=== PATIENT | female | born 1965 | race American Indian/Alaskan Native ===

== ENCOUNTER 2017-07-16 06:14 | Day surgery (SDC) | payer BC ==
[~2017-07-16 06:14] MED LIST: HEPARIN 10,000 UNITS/10 ML IV ONE; NACL 0.9% 1000 ML 1,000 ML IV SCH; NACL 0.9% IR ONE; NACL 0.9% IV ONE; PEPCID PO NR; VERSED IV NR
--- NOTE | 2017-07-16 07:22 | Anesthesia Consultation ---
Anesthesia Consult and Med Hx Date of service: 07/16/17 - Airway Anesthetic Teeth Evaluation: Good ROM Head & Neck: Adequate Mental/Hyoid Distance: Adequate Mallampati Class: Class III Intubation Access Assessment: Possibly Difficult - Pulmonary Exam CTA: Yes - Cardiac Exam Cardiac Exam: RRR - Pre-Operative Health Status ASA Pre-Surgery Classification: ASA2 Proposed Anesthetic Plan: General - Cardiovascular System Hx Hypertension: Yes (2 years) - Central Nervous System Hx Psychiatric Problems: No - Hematic Hx Anemia: Yes - Other Systems Hx Alcohol Use: Yes (weekends) Hx Cancer: Yes (Left breast)
--- NOTE | 2017-07-16 07:22 | Anesthesia Day of Surgery ---
Anesthesia Day of Surgery - Day of Surgery Patient Examined: Yes Patient H&P Reviewed: Yes Patient is NPO: Yes
[2017-07-16] MEDS ORDERED: DILAUDID IV PRN (07:23)
[2017-07-16] MEDS ORDERED: HEPARIN 10,000 UNITS/10 ML ONE (07:39)
[2017-07-16] MEDS ORDERED: MARCAINE 0.25% INFILTRATI ONE ×3 (07:39→08:45)
[2017-07-16] MEDS ORDERED: XYLOCAINE 1% 20 mL ONE (07:39)
[2017-07-16] MEDS ORDERED: NACL 0.9% 100 ML ONE (07:39)
[2017-07-16] MEDS ORDERED: ANCEF/STERILE WATER 2 GM/20 ML IV NR (08:00)
[2017-07-16] MEDS ORDERED: DIPRIVAN 10 MG/ML IV ONE (08:12)
[2017-07-16] MEDS ORDERED: DILAUDID ONE (08:12)
[2017-07-16] MEDS ORDERED: XYLOCAINE MPF 2% ONE (08:13)
[2017-07-16] MEDS ORDERED: ZOFRAN IV PRN (08:30)
[2017-07-16] MEDS ORDERED: PERCOCET 5/325 PO PRN (08:30)
[2017-07-16] MEDS ORDERED: ZOFRAN ONE (08:40)
[2017-07-16] MEDS ORDERED: XYLOCAINE 1% 20 mL INFILTRATI ONE ×2 (08:45)
[2017-07-16] MEDS ORDERED: HEPARIN 10,000 UNITS/10 ML IV ONE ×2 (08:59→09:20)
[2017-07-16] MEDS ORDERED: NACL 0.9% IV ONE (08:59)
[2017-07-16] MEDS ORDERED: NACL 0.9% IR ONE (09:04)
--- NOTE | 2017-07-16 09:38 | Short Stay Summary ---
Short Stay Documentation Date of service: 07/16/17 - History H&P: obtained from office - Allergies and Medications Current Medications: Allergies No Known Allergies Allergy (Unverified 07/10/17 14:02) Home Medications Medication Instructions Recorded Confirmed Last Taken Type amLODIPine [Norvasc] 5 mg PO DAILY 07/10/17 07/16/17 07/15/17 19:00 History Active Medications Cefazolin Sodium (Ancef/Sterile Water 2 Gm/20 Ml) 2 gm IV PREOP NR Stop: 07/16/17 15:00 Famotidine (Pepcid) 20 mg PO PREOP NR Stop: 07/16/17 23:59 Last Admin: 07/16/17 07:47 Dose: 20 mg Hydromorphone HCl (Dilaudid) 0.5 mg IV Q10MIN PRN PRN Reason: Pain , Severe (7-10) Stop: 07/16/17 15:00 Sodium Chloride (Nacl 0.9% 1000 Ml) 1,000 mls @ 75 mls/hr IV DIRECT ISABEL Last Admin: 07/16/17 07:47 Dose: 75 mls/hr Midazolam HCl (Versed) 2 mg IV PREOP NR Stop: 07/16/17 23:59 Last Admin: 07/16/17 07:47 Dose: 2 mg - Brief post op/procedure progress note Date of procedure: 07/16/17 Pre-op diagnosis: Left breast cancer of the upper outer quadrant Post-op diagnosis: same Procedure: Left port placement under fluoroscopy guidance Anesthesia: GETA Findings: left port placement confirmed under fluoroscopy guidance Surgeon: CHYNA RICHARDSON Purchasing/Receiving: JACK LANG Estimated blood loss: minimal Pathology: none Condition: stable - Disposition Condition at discharge: Good Disposition: DC-01 TO HOME OR SELFCARE Short Stay Discharge Plan Activity: other (no heavy lifting) Diet: regular Wound: other (keep incision clean and dry; may shower in 24 hours; no baths, pools or lakes; do not rub or scrub incision) Follow up with: DONOVAN DENTON JR, MD [Primary Care Provider] - 7 Days CHYNA RICHARDSON MD [Staff Physician] - 7 Days
--- NOTE | 2017-07-16 09:39 | Fluoroscopy Report ---
AP CHEST: HISTORY: Port insertion AP view of the chest demonstrates a normal mediastinal and cardiac contour with clear lungs and normal bony and soft tissue structures. A right [id number] has been inserted which terminates near the cavoatrial junction. No pneumothorax is demonstrated. IMPRESSION: Unremarkable AP chest.
--- NOTE | 2017-07-16 09:43 | Operative Report ---
Operative Report Operative Report: Date of Service: July 16, 2017 Preoperative diagnosis: Left breast cancer of the upper outer quadrant in need of central venous access Postoperative diagnosis: Same Procedure: Right port placement under fluoroscopy guidance Surgeon: Tatum Akbar M.D. Asst.: Dr. Johnson Anesthesia: Local Mac Findings: Right port placement in good position with placement confirmed under fluoroscopy guidance Complications: None Estimated blood loss: Minimal Disposition: PACU in good condition Indications for operative procedure: This is a 70-year-old lady with left breast cancer of the upper outer quadrant. Recommendations are to proceed with neoadjuvant chemotherapy. Patient in need of central venous access to start chemotherapy. Procedure in detail: The patient was taken to the operating room and was laid supine. Local Mac anesthesia was administered. Bilateral neck and chest were prepped and draped in the normal sterile operative fashion. Timeout was performed. Sternal notch including right pectoral groove was identified. The area for central venous access was anesthetized with 1% lidocaine. The right sublcavian vein was accessed with the syringe and needle attached and good backflow of blood was noted. Wire was introduced through the needle. Placement of wire was confirmed under fluoroscopy guidance. A skin incision was then made at wire insertion site with a 15 blade knife after the skin was appropriately anesthetized. Bovie cautery was used to create the pocket for port placement. Dilator and sheath were then threaded through the wire in Seldinger technique. The wire and dilator were then removed. The catheter was then inserted through the sheath without incident. The catheter was tested with good backflow of blood and placement confirmed under flouroscopy. The sheath was then peeled back. The catheter was cut to size. The catheter was then attached to the port. The port was placed in the appropriate pocket that was created. The port was tested with good backflow of blood noted. Fluoroscopy was performed with port in good placement and no concerns for a pneumothorax. The port was sutured into place. The port was flushed with heparin. The skin incision was then approximated and closed using interrupted 3-0 Vicryl and then closed using a running 4-0 Monocryl and skin affix. Upright chest x-ray performed in operating room with port in good placement and no signs of pneumothorax. She tolerated surgery very well and was awakened from anesthesia and transported to PACU in good condition.
[2017-07-16] MEDS ORDERED: NORCO 5/325 PO PRN (10:30)
[2017-07-16 18:40] VITALS: BP 137/85
--- NOTE | 2017-07-16 18:41 | Post Anesthesia Evaluation ---
- Post Anesthesia Evaluation Patient Participated: Yes Airway Patent: Yes Stable Respiratory Function: Yes Nausea/Vomiting: No Temp > 96.8F: Yes Pain Manageable: Yes Adequeate Hydration: Yes Anesthesia Complications: No Block Receding Appropriately: Not Applicable Patient on Ventilator: No
== END 2017-07-16 11:17 | disposition home or self-care (01) ==
LOC: OR 06:14
PROVIDERS: ATTEND Surgery
DX: C50.412 Malignant neoplasm of upper-outer quadrant of left female breast (principal); D64.9 Anemia, unspecified; I10 Essential (primary) hypertension; Z72.89 Other problems related to lifestyle
CPT/HCPCS: 36561; 77001; 81025; C1788; J0690; J1170; J1644; J2250; J2405; J2704; J7030

== ENCOUNTER 2017-07-17 07:28 | Outpatient (CLI) | payer BC ==
--- NOTE | 2017-07-17 12:51 | PET Report ---
PET/CT:07/17/17 07:28:00 CLINICAL: Left breast cancer initial staging. RADIOPHARMACEUTICAL: 13.55mCi F18-FDG. COMPARISON: 07/04/17 left mammogram TECHNIQUE- Following intravenous injection of F-18 FDG and an approximately 60 minute uptake period, CT and PET images from the mid skull to the upper thighs were acquired with the patient in the fasted state. No contrast was administered. The CT protocol used for this PET CT study is designed for attenuation correction and anatomic localization of PET abnormalities. This build and deployment engineer CT is not desired to produce and cannot replace, mtwnh-th-siv-art diagnostic CT scans with specific imaging protocols for different body parts and indications. Plasma glucose at the time of this test: 103g/dl. The standardized uptake values (SUV) are normalized to patient body weight and indicate the highest activity concentration (SUV max) in a given disease site. FINDINGS: Brain--Physiologic FDG uptake in the visualized regions of the brain. Neck--Physiologic FDG uptake . Shotty non-FDG avid lymph nodes throughout the neck. Chest--An FDG avid left upper outer breast mass corresponds to the newly diagnosed cancer and measures 3.8 x 2.4 cm with SUV 10.6. Physiologic FDG uptake in mediastinal blood pool and myocardium. The left breast is enlarged with moderate skin thickening but no FDG uptake in the skin and no other breast mass. Lungs--No abnormal uptake. No pulmonary nodule or mass. Pleura/pericardium--No abnormal uptake. Thoracic nodes--FDG avid left axillary lymphadenopathy. The largest lymph node measures 3.8 x 3.1 cm with SUV 10.9. At least six FDG avid left axillary lymph nodes. An FDG avid left subpectoral lymph node measures 1.4 x 1.2 cm with SUV 4.6. An FDG avid left supra-clavicular lymph node measures 1.0 x 0.8 cm with SUV 4.0. Several small non-FDG avid right axillary lymph nodes. Hepatobiliary--No abnormal uptake. Liver background SUV mean, as a reference for comparing FDG studies, is 5.1 . No liver mass. Spleen--No abnormal uptake. Pancreas--No abnormal uptake. Adrenal Glands--No abnormal uptake. Kidneys/Ureters/Bladder--No abnormal uptake. Abdominopelvic Nodes--No abnormal uptake. Bowel/Peritoneum/Mesentery--No abnormal uptake. Pelvic organs--No abnormal uptake. Bones/Soft Tissues--focal uptake in the proximal left clavicle with SUV 3.4 and no lesion identified on CT. No other suspicious uptake. Other findings: Several large gallstones without cholecystitis. IMPRESSION- 1. Left breast cancer with left axillary, left subpectoral and left supraclavicular metastasis. 2. No evidence of hepatic or pulmonary metastasis. 3.Focal FDG uptake in the proximal left clavicle is suspicious but not conclusive for metastasis. Followup imaging may be more conclusive.
== END 2017-07-17 07:29 | disposition home or self-care (01) ==
LOC: PET 07:28
PROVIDERS: ATTEND Surgery
DX: C79.89 Secondary malignant neoplasm of other specified sites (principal); C50.912 Malignant neoplasm of unspecified site of left female breast; K80.20 Calculus of gallbladder without cholecystitis without obstruction; R59.1 Generalized enlarged lymph nodes; Z79.899 Other long term (current) drug therapy
CPT/HCPCS: 78815; 82962; A9552

== ENCOUNTER 2017-07-21 08:08 | Outpatient (CLI) | payer BC ==
--- NOTE | 2017-07-22 14:13 | Magnetic Resonance Report ---
MRI of the breasts with and without contrast. History: Recently diagnosed left invasive breast cancer. The patient's prior mammogram and ultrasound from [facility] in May of 2017 were reviewed. Procedure: The study was performed on a Sentinelle breast coil and a 1.5 Meera GE magnet. Pre-contrast axial T1 and T2-weighted images were followed by postcontrast high-resolution multiphase sequences with fat saturation. Post processing was performed on an [employer] work station. Findings: Left breast. There is a heterogeneously enhancing mass lesion in the upper outer quadrant of the left breast measuring 6.9 x 3.1 x 2.7 cm. The margins are irregular. The lesion is 15.1 cm from the nipple. There is type III enhancement pattern. There are no additional mass lesions or abnormal areas of enhancement in the breast. Multiple enlarged left axillary lymph nodes, largest of which measures 3.1 cm are present. Extensive skin thickening is also present. Right breast. No suspicious mass lesions or non-Mass enhancement are identified. 2 subcentimeter intramammary nodes are seen in the upper-outer quadrant of the right breast. These demonstrate typical reniform contour and fatty shreya. Impression: Left breast: Biopsy proven malignancy in the upper-outer quadrant as detailed above. Skin thickening and abnormal axillary adenopathy are present, but there is no evidence of multicentric or multifocal disease. BI-RADS code: 6. Right breast. No suspicious abnormalities. Small intramammary lymph nodes are described. BI-RADS code: 2. Recommendation: Annual screening for the right breast.
== END 2017-07-21 08:09 | disposition home or self-care (01) ==
LOC: SPVIMAG 08:08
PROVIDERS: ATTEND Surgery
DX: C50.412 Malignant neoplasm of upper-outer quadrant of left female breast (principal)
CPT/HCPCS: 0159T; A9577; C8908; 77059

== ENCOUNTER 2017-07-21 08:13 | Outpatient (CLI) | payer BC ==
[2017-07-21] MEDS ORDERED: FLUSH HEPARIN IV ONE ×2 (11:51→11:52)
--- NOTE | 2017-07-21 15:23 | Nuclear Medicine Report ---
NM MUGA INDICATION: Neoplasm upper-outer quadrant left breast. COMPARISON: None similar. FINDINGS: The patient's red blood cells were labeled with 22 mCi of Technetium 99m by UltraTag technique. Gated equilibrium views were obtained in COMORAN projections. Computer analysis of left ventricular ejection fraction and motion wall was performed. The right atrium, right ventricle and left ventricle show normal size and contractility. The left ventricle ejection fraction is 67% (normal greater than 50%). The heart rate is 60 beats per minute. CONCLUSION: Normal MUGA scan. The left ventricle ejection fraction is 67%. Thank you for the opportunity to participate in this patient's care.
== END 2017-07-21 08:14 | disposition home or self-care (01) ==
LOC: NM 08:13
PROVIDERS: ATTEND Internal Medicine Hematology & Oncology
DX: C50.412 Malignant neoplasm of upper-outer quadrant of left female breast (principal); E66.9 Obesity, unspecified; I10 Essential (primary) hypertension
CPT/HCPCS: 78472; A9560; J1642

== ENCOUNTER 2017-10-21 14:32 | Outpatient (CLI) | payer BC ==
--- NOTE | 2017-10-21 15:18 | Mammography Report ---
LEFT DIGITAL DIAGNOSTIC MAMMOGRAM with CAD: 10/21/17 14:32:00 CLINICAL: Followup after chemotherapy. COMPARISON:07/04/17 FINDINGS: The breast is heterogeneously dense.No identifiable residual mass at the upper outer biopsy clip. There is slightly greater asymmetric density in the upper portion of the breast on the MLO view compared to the prior exam. However, there is no correlation on the CC view. Stable skin thickening of the breast. IMPRESSION: A complete or near complete response to chemotherapy. BI-RADS CATEGORY: 6--Known Cancer ACR BI-RADS MAMMOGRAPHIC CODES: 0 = Needs additional imaging evaluation; 1 = Negative; 2 = Benign; 3 = Probably benign; 4 = Suspicious; 5 = Malignant; 6 = Known biopsy-proven malignancy COMMENT: 1. Dense breast tissue, i.e., adenosis, fibrocystic changes, etc., may obscure an underlying neoplasm. 2. Approximately 10% of cancers are not detected with mammography. 3. A negative mammography report should not delay biopsy if a clinically suspicious mass is present. COMMENT: Patient follow-up letters are generated by our [employer] application.
== END 2017-10-21 14:33 | disposition home or self-care (01) ==
LOC: SPVWC 14:32
PROVIDERS: ATTEND Surgery
DX: C50.412 Malignant neoplasm of upper-outer quadrant of left female breast (principal)

== ENCOUNTER 2017-10-22 15:03 | Outpatient (CLI) | payer BC | END 2017-10-22 15:04 | disposition home or self-care (01) | LOC: LABHHL 15:03 | PROVIDERS: ATTEND Surgery | DX: L98.9 Disorder of the skin and subcutaneous tissue, unspecified (principal) | CPT/HCPCS: 88305 ==

== ENCOUNTER 2017-11-10 08:54 | Outpatient (CLI) | payer BC ==
[2017-11-10] MEDS ORDERED: FLUSH HEPARIN IV ONE ×2 (09:33→09:36)
--- NOTE | 2017-11-10 12:38 | Nuclear Medicine Report ---
NM MUGA INDICATION: Carcinoma upper-outer quadrant of left breast. COMPARISON: 07/21/2017. FINDINGS: The patient's red blood cells were labeled with 20 mCi of Technetium 99m by UltraTag technique. Gated equilibrium views were obtained in OSIRIS projections. Computer analysis of left ventricular ejection fraction and motion wall was performed. The right atrium, right ventricle and left ventricle show normal size and contractility. The left ventricle ejection fraction is 78% (normal greater than 50%). The heart rate is 85 beats per minute. CONCLUSION: Normal MUGA scan. The left ventricle ejection fraction is 78%. Thank you for the opportunity to participate in this patient's care.
== END 2017-11-10 08:55 | disposition home or self-care (01) ==
LOC: NM 08:54
PROVIDERS: ATTEND Internal Medicine Hematology & Oncology
DX: C50.412 Malignant neoplasm of upper-outer quadrant of left female breast (principal); Z79.899 Other long term (current) drug therapy
CPT/HCPCS: 78472; A9560; J1642

== ENCOUNTER 2017-11-27 07:17 | Outpatient (CLI) | payer BC ==
--- NOTE | 2017-11-27 11:00 | PET Report ---
PET/CT:11/27/17 07:17:00 CLINICAL: Left breast cancer restaging. RADIOPHARMACEUTICAL: 14.27mCi F18-FDG. COMPARISON: 07/17/17 PET/CT TECHNIQUE- Following intravenous injection of F-18 FDG and an approximately 60 minute uptake period, CT and PET images from the mid skull to the upper thighs were acquired with the patient in the fasted state. No contrast was administered. The CT protocol used for this PET CT study is designed for attenuation correction and anatomic localization of PET abnormalities. This blade operator CT is not desired to produce and cannot replace, geqkb-bs-itz-art diagnostic CT scans with specific imaging protocols for different body parts and indications. Plasma glucose at the time of this test: 85g/dl. The standardized uptake values (SUV) are normalized to patient body weight and indicate the highest activity concentration (SUV max) in a given disease site. FINDINGS: Brain--Physiologic FDG uptake in the visualized regions of the brain. Neck--Physiologic FDG uptake . Chest--Physiologic FDG uptake in mediastinal blood pool and myocardium. Resolution of the previously described 3.8 cm left upper outer breast mass. A biopsy clip remains at the site of the mass. Lungs--No abnormal uptake. No pulmonary nodule or mass. Pleura/pericardium--No abnormal uptake. Thoracic nodes--No abnormal uptake. A few small left axillary lymph nodes. The largest measures 1.8 x 1.4 cm compared to 3.8 x 3.1 cm on the last exam. Hepatobiliary--No abnormal uptake. Liver background SUV mean, as a reference for comparing FDG studies, is 4.4 compared to 5.1 on the last exam. No liver mass. Spleen--No abnormal uptake. Pancreas--No abnormal uptake. Adrenal Glands--No abnormal uptake. Kidneys/Ureters/Bladder--No abnormal uptake. Abdominopelvic Nodes--No abnormal uptake. Bowel/Peritoneum/Mesentery--No abnormal uptake. Pelvic organs--No abnormal uptake. Bones/Soft Tissues--No abnormal uptake. No suspicious bone lesion. IMPRESSION- Resolution of left FDG avid breast mass and FDG uptake in left axillary lymph nodes.A few small non-FDG avid left axillary lymph nodes remain. No evidence of pulmonary, hepatic or skeletal metastasis.
== END 2017-11-27 07:18 | disposition home or self-care (01) ==
LOC: PET 07:17
PROVIDERS: ATTEND Internal Medicine Hematology & Oncology
DX: C50.412 Malignant neoplasm of upper-outer quadrant of left female breast (principal); I10 Essential (primary) hypertension; D64.9 Anemia, unspecified; K21.9 Gastro-esophageal reflux disease without esophagitis; Z79.899 Other long term (current) drug therapy
CPT/HCPCS: 78815; 82962; A9552

== ENCOUNTER 2018-01-07 07:25 | Day surgery (SDC) | payer BC ==
[2018-01-07] MEDS ORDERED: XYLOCAINE 1% 20 mL ONE (07:52)
[2018-01-07] MEDS ORDERED: BACITRACIN ONE (07:58)
[2018-01-07] MEDS ORDERED: GARAMYCIN ONE (07:59)
[2018-01-07] MEDS ORDERED: NACL P/F VIAL (10 ML) 10 ML ONE (07:59)
[2018-01-07] MEDS ORDERED: XYLOCAINE 1% 20 mL INFILTRATI NR (08:13)
[2018-01-07] MEDS ORDERED: MARCAINE 0.5% INFILTRATI NR (10:00)
[2018-01-07] MEDS ORDERED: LACTATED RINGERS 1,000 ML IV SCH (10:00)
[2018-01-07] MEDS ORDERED: VERSED IV NR (10:00)
[2018-01-07] MEDS ORDERED: NACL P/F VIAL (10 ML) INFILTRATI NR (10:00)
[2018-01-07] MEDS ORDERED: SUBLIMAZE IV NR (10:30)
[2018-01-07] MEDS ORDERED: ANCEF/STERILE WATER 2 GM/20 ML IV NR (10:30)
[2018-01-07] MEDS ORDERED: MARCAINE 0.25% INFILTRATI ONE ×3 (12:00→15:02)
[2018-01-07] MEDS ORDERED: XYLOCAINE MPF 2% ONE (12:32)
[2018-01-07] MEDS ORDERED: DIPRIVAN 10 MG/ML IV ONE (12:33)
[2018-01-07] MEDS ORDERED: ZEMURON IV ONE (12:33)
[2018-01-07] MEDS ORDERED: DILAUDID ONE (12:34)
--- NOTE | 2018-01-07 13:11 | Post Operative Note ---
Pre-op diagnosis: left breast cancer Post-op diagnosis: same Findings: left breast defect Procedure: left oncoplastic reduction, right reduction for symmetry Anesthesia: GETA Surgeon: AIMEE ARTHUR Estimated blood loss: minimal Pathology: list (left breast mass) Specimen disposition: to lab Condition: stable Disposition: PACU
--- NOTE | 2018-01-07 13:26 | Anesthesia Day of Surgery ---
Anesthesia Day of Surgery - Day of Surgery Patient Examined: Yes Patient H&P Reviewed: Yes Patient is NPO: Yes
[2018-01-07] MEDS ORDERED: DILAUDID IV PRN (13:27)
[2018-01-07] MEDS ORDERED: ZOFRAN IV PRN (13:27)
[2018-01-07] MEDS ORDERED: TORADOL IV PRN (13:27)
--- NOTE | 2018-01-07 13:27 | Anesthesia Consultation ---
Anesthesia Consult and Med Hx Date of service: 01/07/18 - Airway Anesthetic Teeth Evaluation: Good ROM Head & Neck: Adequate Mental/Hyoid Distance: Adequate Mallampati Class: Class III Intubation Access Assessment: Possibly Difficult - Pulmonary Exam CTA: Yes - Cardiac Exam Cardiac Exam: RRR - Pre-Operative Health Status ASA Pre-Surgery Classification: ASA3 Proposed Anesthetic Plan: General - Cardiovascular System Hx Hypertension: Yes (2014) - Central Nervous System Hx Psychiatric Problems: Yes - Hematic Hx Anemia: Yes Hx Sickle Cell Disease: Yes (TRAIT) - Other Systems Hx Alcohol Use: Yes (WEEKENDS) Hx Substance Use: No Hx Cancer: Yes
[2018-01-07] MEDS ORDERED: METHYLENE BLUE ONE (13:30)
[2018-01-07] MEDS ORDERED: ePHEDrine SULFATE ONE (13:35)
--- NOTE | 2018-01-07 13:56 | Mammography Report ---
NEEDLE LOCALIZATION AND HOOKWIRE PLACEMENT LEFT BREAST:01/07/18 CLINICAL: Left breast cancer status post neoadjuvant chemotherapy. COMPARISON: 10/21/17 FINDINGS: Using mammographic guidance, 1% lidocaine local anesthesia and sterile technique, a 3.0-cm Mart hookwire was placed from a lateral approach to localize a biopsy clip.. Two views demonstrated satisfactory targeting. The hookwire was deployed and two additional orthogonal images were obtained. The patient tolerated the procedure well and there were no apparent complications. IMPRESSION: Uncomplicated hookwire placement left breast.
[2018-01-07] MEDS ORDERED: LACTATED RINGERS 1,000 ML ONE (14:14)
--- NOTE | 2018-01-07 15:00 | Mammography Report ---
SPECIMEN RADIOGRAPH LEFT BREAST: 01/07/18 07:25:00 CLINICAL: Surgical excision of left breast cancer. FINDINGS: The targeted lesion with a biopsy clip is identified within the specimen. IMPRESSION: Excision of the targeted lesion.
[2018-01-07] MEDS ORDERED: WATER FOR IRRIG STERILE IR ONE (15:21)
[2018-01-07] MEDS ORDERED: NACL 0.9% IR ONE (15:29)
[2018-01-07] MEDS ORDERED: ZOFRAN ONE (15:45)
--- NOTE | 2018-01-07 16:05 | Short Stay Summary ---
Short Stay Documentation Date of service: 01/07/18 - History H&P: obtained from office - Allergies and Medications Current Medications: Allergies No Known Allergies Allergy (Verified 01/05/18 15:02) Home Medications Medication Instructions Recorded Confirmed Last Taken Type amLODIPine [Norvasc] 5 mg PO DAILY 07/10/17 01/05/18 01/07/18 06:30 History Escitalopram [Lexapro] 10 mg PO DAILY 01/05/18 01/05/18 01/07/18 06:30 History Active Medications Bupivacaine HCl (Marcaine 0.5%) 20 ml INFILTRATI PREOP NR Stop: 01/07/18 21:00 Cefazolin Sodium (Ancef/Sterile Water 2 Gm/20 Ml) 2 gm IV PREOP NR Stop: 01/07/18 21:00 Fentanyl (Sublimaze) 100 mcg IV ONCE NR Stop: 01/07/18 21:00 Hydromorphone HCl (Dilaudid) 0.5 mg IV Q10MIN PRN PRN Reason: Pain , Severe (7-10) Lactated Ringer's (Lactated Ringers) 1,000 mls @ 100 mls/hr IV DIRECT ISABEL Last Admin: 01/07/18 10:10 Dose: 100 mls/hr Ketorolac Tromethamine (Toradol) 30 mg IV ONCE PRN PRN Reason: Pain, Moderate (4-6) Midazolam HCl (Versed) 2 mg IV PREOP NR Stop: 01/07/18 23:59 Ondansetron HCl (Zofran) 4 mg IV ONCE PRN PRN Reason: Nausea And Vomiting Sodium Chloride (Nacl P/F Vial (10 Ml)) 1 ml INFILTRATI PREOP NR Stop: 01/07/18 21:00 - Brief post op/procedure progress note Date of procedure: 01/07/18 Pre-op diagnosis: Left breast cancer of the upper outer quadrant Post-op diagnosis: same Procedure: Left partial mastectomy with SLNB Anesthesia: GETA Findings: Left partial mastectomy with wire and clip present with radiograph specimen; radiograph specimen with clip present within axillary lymph node Surgeon: CHYNA RICHARDSON Launch Check Out: JACK LANG Estimated blood loss: minimal Pathology: list (left partial mastectomy and left axillary lymph node) Specimen disposition: to lab Condition: stable - Disposition Condition at discharge: Good Disposition: DC- TO HOME OR SELFCARE Short Stay Discharge Plan Activity: other (no heavy lifting) Diet: regular Wound: other (keep incisions clean and dry; may shower in 48 hours; no baths, pools or lakes) Follow up with: AIMEE ARTHUR MD [Staff Physician] - 14 Days DONOVAN DENTON JR, MD [Primary Care Provider] - 7 Days CHYNA RICHARDSON MD [Staff Physician] - 7 Days
--- NOTE | 2018-01-07 16:06 | Operative Report ---
Operative Report Operative Report: Date of Service: January 07, 2018 Preoperative diagnosis: Left breast cancer of the upper outer quadrant Postoperative diagnosis: Same Procedure: Left needle loccalization partial mastectomy of the upper outer quadrant with SLNB and placement of 3-dimensional implant (2x3 cm) to kim surgical site Surgeon: Tatum Akbar MD Document Scanner: Jeny Mohamud DO Anesthesia: General Findings: Left breast clip present within radiograph specimen; 1 SLN; rleft partial mastectomy site 3-dimensional BioZorb placement Complications: None EBL: Minimal Disposition: Plastic surgery proceeded with bilateral reduction mammoplasty Indications for operative procedure: This is a 52 year old lady with Stage III left breast cancer of the upper outer quadrant. She completed neoadjuvant chemotherapy of TCH/P. Recommendations were to proceed with breast conservation with SLN. Patient also wanted to proceed with a bilateral reduction mammoplasty. Recommendations were also placement of BioZorb to kim surgical cavity site given plastics procedure. Procedure in detail: Patient was then taken to the operating room. Gen. anesthesia was administered. The left nipple was injected with radioisotope adn 1 cc of mehtylene blue dye mixed with 1 cc of saline. Bilateral breast were prepped and draped in the normal sterile operative fashion. Known cancer was at the upper outer quadrant at the 2:00 position 17 cm from the nipple with wire present. Timeout was performed. Gamma probe was inserted into the axilla. Minimal uptake noted. Frist began with the SLNB. A left axillary incision was made with a 15 blade knife with dissection taken down to the subcutaneous tissues. The axillary fascia was opened with the Bovie cautery. The gamma probed was inserted into the axilla with minimal uptake noted. 1 SLN was identified that was previously biopsied. No additional counts were present. Lymph node was sent to pathology for permanent processing. Hemostasis was noted in the left axillary cavity. Axillary cavity was appropriately irrigated and suctioned. Axillary fascia was approximated and closed using interrupted 3-0 Vicryl and the skin brought together and closed using a running 4-0 Monocryl followed by skin affix. Attention was then taken towards the left breast. Left wire was identified. Upper outer quadrant breast incision was made with a 15 blade knife in line of reducation mammplasty markdings and dissection taken down to subcutaneous tissues. First began raising of the cephalad flap with removal of wire from the skin and then dissection taken down to the pectoralis muscle, followed by raising of the caudal flap, medial flap and lateral flap, with all flaps taken down towards the pectoralis muscle. The breast area of concern was appropriately removed posteriorly with the aid of the Bovie cautery. Specimen was marked and then sent to pathology and radiology; radiograph specimen with clip present. Breast cavity was irrigated and hemostasis was obtained. Breast cavity was noted to have a large defect in relationship to the breast and wound leave a significant deformity if untreated. To correct volume loss due to partial mastectomy, and also given patient was undergoing reduction mammoplasty, to ensure appropriate location for radiation at lumpectomy site recommendations were to proceed with placement of BioZorb. Then proceeded with mobilization of the tissues on both sides of the lumpectomy both medial and laterally. The defect was noted to be 7x7 cm. Once the tissues were appropriately mobilized, the region of the surgical site was demarcated for the radiation oncologist and for future follow-up surveillance by implanting a 3- dimensional device to identify the exact area of previous tumor bed. This is particularly important in this case given area of tissue mobilization performed and further to reconfirm area of cancer. After using a sizing tool to assess the lumpectomy cavity, the 3-dimensional BioZorb implant size 2 x 3 cm was chosen to kim the location of the tumor site within the lumpectomy cavity which had been identified prior to the extensive mobilization for reconstruction. 4 stay sutures were placed to ensure the BioSorb was in good stable position using interrupted 3-0 PDS suture. The implant was sutured in posteriorly. Approximation of tissue more anteriorly was then reconstructed to ensure a normal contour for the implant device to totally cover with natural breast parenchyma. Once that was completed, the area was inspected with hemostasis noted and a good cosmetic outcome. Dr. Pacheco then proceeded with bilateral reduction mammoplasty.
--- NOTE | 2018-01-07 16:08 | Mammography Report ---
SPECIMEN RADIOGRAPH LEFT BREAST: 01/07/18 07:25:00 CLINICAL: Surgical excision of left breast cancer. FINDINGS: The targeted lesion with a biopsy clip and a hook wire are identified within the specimen. IMPRESSION: Excision of the targeted lesion.
[2018-01-07] MEDS ORDERED: NEO SYNEPHRINE ONE (16:09)
--- NOTE | 2018-01-07 17:50 | Post Anesthesia Evaluation ---
- Post Anesthesia Evaluation Patient Participated: Yes Airway Patent: Yes Stable Respiratory Function: Yes Nausea/Vomiting: No Temp > 96.8F: Yes Pain Manageable: Yes Adequeate Hydration: Yes Anesthesia Complications: No
[2018-01-07] MEDS ORDERED: ROXICODONE PO PRN (18:05)
[2018-01-07 18:59] VITALS: BP 117/75
[2018-01-07] MEDS ORDERED: NEURONTIN PO SCH (22:00)
--- NOTE | 2018-01-08 01:55 | Operative Report ---
PREOPERATIVE DIAGNOSIS: Left-sided breast cancer. POSTOPERATIVE DIAGNOSIS: Left-sided breast cancer. PROCEDURES: 1. Left breast reconstruction using other technique, oncoplastic breast reduction, CPT CODE 44824-R0. 2. Right breast reduction for symmetry secondary to cancer diagnosis, CPT CODE 65285-M. SURGEON: Go Pacheco M.D. TITLE VEHICLE SERVICE ATTENDANT: None. ANESTHESIA: General. OPERATIVE INDICATIONS: This 52-year-old female who was referred to me by Dr. Akbar who was going to be undergoing breast-conservation therapy for a left-sided breast cancer. She wanted to keep her breast and had very large ptotic breasts symptoms for quite a long time and so I recommended an oncoplastic reduction on that side in order to fill in the defect left in the lumpectomy to improve the negative margin rate and overall to decrease her breast size and alleviate some of her symptoms. She agreed with this. DESCRIPTION OF PROCEDURE: After informed consent was obtained, the patient was brought to the operating room and placed supine on the operative room table. Preoperative antibiotics and general anesthesia were administered. The patient was prepped and draped in the usual sterile fashion and a timeout was called verifying the name of the patient, and operation to be performed. Preoperative markings were made in the holding area for a Guo-pattern breast reductions with superior medial technique. Cancer was in the upper lateral quadrant of the left breast. Dr. Akbar began on the left side performing the sentinel lymph node and the lumpectomy while I began the reduction on the right side. On the right, I took a 42 mm cookie cutter and resized the areola. Superior medial pedicle was then deepithelialized and dissected down to chest wall. Breast reduction was then performed removing the excess lateral inferior and medial breast tissue. Additional resections were done in order to contour the breast appropriately, it was then irrigated. Hemostasis was achieved with 30 mL of 0.25% Marcaine plain was injected in the prepectoral fascia for postoperative pain control. The breast was temporarily stapled shut. Once Dr. Akbar was done with her portion of the operation, I assessed the defect. There was a large defect laterally and superiorly underneath what would be the lateral breast flap. It did not appear to involve blood supply to the nipple areola complex and the superior medial technique could to be performed. So, the same procedure was started on the left side 42 mm cookie cutter was used to resect the areola. Superior medial pedicle was deepithelialized and developed on the chest wall. I then performed a breast reduction removing the excess medial inferior tissue and then some of the lateral tissue, but we did leave some of the lateral tissue in place in order to rotate that in and help cover the defect of the lumpectomy. Once this was done, the BioZorb radiation marker did have to be removed. The one that Dr. Akbar had placed as it was in part of the resection field, so I took an additional shaved margin of that area and then replaced the BioZorb in the new defect area. I then took the adjacent tissue that we had saved draped that over the top of the BioZorb in order to create additional contouring in that area and decreased visibility of the BioZorb. Once that was done, we achieved hemostasis, irrigated and injected the remainder of the 30 mL of Marcaine and the prepectoral fascia were temporarily closed, breast with jamilah were set. The patient now assessed for size and symmetry and decided where the position of the nipple areolar complex would be and marked that and later back down and then opened up everything up, resected the additional marked areas of skin until level of the nipple areolar complexes were stapled in place temporarily and then began with closure. A 2-0 Vicryl was used for the bottom of the anchor incision to bring the 3 flaps together and then 3-0 Monocryl was used in a deep dermal fashion to insert the nipple areola complex and vertical limb. We then used a 2-0 Stratafix barbed suture for the inframammary fold and 3-0 Stratafix barbed suture for the circum-vertical closure. Dermabond was applied, sterile dressings and a breast binder. The patient tolerated the procedure well and was awakened from general anesthesia, transferred to PACU in stable condition. COMPLICATIONS: None. ESTIMATED BLOOD LOSS: 50cc. SPECIMENS: In total; left breast 1520 grams removed. Right breast 860 grams removed. JOB# [id number] IVAN/MALIK RODRIGUEZ
== END 2018-01-07 07:26 | disposition home or self-care (01) ==
LOC: OR 07:25
PROVIDERS: ATTEND Surgery
DX: C50.412 Malignant neoplasm of upper-outer quadrant of left female breast (principal); I10 Essential (primary) hypertension; D57.3 Sickle-cell trait; E66.9 Obesity, unspecified; Z68.37 Body mass index [BMI] 37.0-37.9, adult; Z98.890 Other specified postprocedural states; Z79.899 Other long term (current) drug therapy
CPT/HCPCS: 19281; 19301; 19318; 19366; 38525; 76098; 78800; 81025; 88305; 88307; 88341; 88342; 88361; A9541; J0690; J1170; J1885; J2370; J2405; J2704; J7120; Q9968; 88309; 88333; J1580; J2250

== ENCOUNTER 2018-01-21 06:05 | Observation (INO) | payer BC ==
[2018-01-21] MEDS ORDERED: NACL BACTERIOSTATIC INFILTRATI ONE (06:51)
[2018-01-21] MEDS ORDERED: ANCEF/STERILE WATER 2 GM/20 ML IV NR (07:00)
--- NOTE | 2018-01-21 07:12 | Anesthesia Consultation ---
Anesthesia Consult and Med Hx Date of service: 01/21/18 - Airway Anesthetic Teeth Evaluation: Good ROM Head & Neck: Adequate Mental/Hyoid Distance: Adequate Mallampati Class: Class I Intubation Access Assessment: Good - Pulmonary Exam CTA: Yes - Cardiac Exam Cardiac Exam: RRR - Pre-Operative Health Status ASA Pre-Surgery Classification: ASA2 Proposed Anesthetic Plan: General - Cardiovascular System Hx Hypertension: Yes (2014) - Central Nervous System Hx Psychiatric Problems: Yes - Hematic Hx Anemia: Yes Hx Sickle Cell Disease: Yes (TRAIT) - Other Systems Hx Alcohol Use: Yes (WEEKENDS) Hx Substance Use: No Hx Cancer: Yes
--- NOTE | 2018-01-21 07:13 | Anesthesia Day of Surgery ---
Anesthesia Day of Surgery - Day of Surgery Patient Examined: Yes Patient H&P Reviewed: Yes Patient is NPO: Yes
[2018-01-21] MEDS ORDERED: DIPRIVAN 10 MG/ML IV ONE (07:37)
[2018-01-21] MEDS ORDERED: SUBLIMAZE ONE ×2 (07:38→09:48)
[2018-01-21] MEDS ORDERED: MARCAINE 0.5% 30 ML INFILTRATI ONE (07:57)
[2018-01-21] MEDS ORDERED: MARCAINE 0.25% INFILTRATI ONE ×2 (07:57→07:59)
[2018-01-21] MEDS ORDERED: XYLOCAINE 1% 20 mL ONE (07:57)
[2018-01-21] MEDS ORDERED: XYLOCAINE 1% 20 mL INFILTRATI ONE (07:59)
[2018-01-21] MEDS ORDERED: WATER FOR IRRIG STERILE IR ONE (07:59)
[2018-01-21] MEDS ORDERED: VERSED IV NR (08:00)
[2018-01-21] MEDS ORDERED: LACTATED RINGERS 1,000 ML IV SCH ×2 (08:00→11:00)
[2018-01-21] MEDS ORDERED: ePHEDrine SULFATE ONE (08:21)
[2018-01-21] MEDS ORDERED: ZOFRAN ONE (09:45)
[2018-01-21] MEDS ORDERED: XYLOCAINE MPF 2% ONE (09:45)
[2018-01-21] MEDS ORDERED: QUELICIN ONE (10:00)
[2018-01-21] MEDS ORDERED: NEO SYNEPHRINE/NS Syringe(OR USE) IV ONE (10:00)
--- NOTE | 2018-01-21 10:52 | Short Stay Summary ---
Short Stay Documentation Date of service: 01/21/18 - History H&P: obtained from office - Allergies and Medications Current Medications: Allergies No Known Allergies Allergy (Verified 01/15/18 15:07) Home Medications Medication Instructions Recorded Confirmed Last Taken Type amLODIPine [Norvasc] 5 mg PO DAILY 07/10/17 01/15/18 01/21/18 05:00 History Escitalopram [Lexapro] 10 mg PO DAILY 01/05/18 01/15/18 01/21/18 05:00 History Active Medications Cefazolin Sodium (Ancef/Sterile Water 2 Gm/20 Ml) 2 gm IV PREOP NR Stop: 01/21/18 23:45 Lactated Ringer's (Lactated Ringers) 1,000 mls @ 42 mls/hr IV DIRECT ISABEL Last Admin: 01/21/18 07:37 Dose: 42 mls/hr Midazolam HCl (Versed) 2 mg IV PREOP NR Stop: 01/21/18 23:59 Last Admin: 01/21/18 07:40 Dose: 2 mg - Brief post op/procedure progress note Date of procedure: 01/21/18 Pre-op diagnosis: 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 Post-op diagnosis: same Procedure: Left ALND Anesthesia: GETA Findings: Left ALND Surgeon: CHYNA RICHARDSON Bias Cutter Helper: JACK LANG Estimated blood loss: minimal Pathology: list (left ALND) Specimen disposition: to lab Condition: stable - Disposition Condition at discharge: Good Disposition: DC/TX-02 SHRT-TRM GEN HOSP IP Short Stay Discharge Plan Activity: other (no heavy lifting) Diet: regular Wound: other (keep incision clean and dry; may shower in 24 hours; no baths, pools or lakes; do not rub or scrub incision) Follow up with: DONOVAN DENTON JR, MD [Primary Care Provider] - 7 Days CHYNA RICHARDSON MD [Staff Physician] - 7 Days
[2018-01-21] MEDS ORDERED: REGLAN PO PRN (10:59)
[2018-01-21] MEDS ORDERED: TYLENOL PO PRN (10:59)
[2018-01-21] MEDS ORDERED: ZOFRAN IV PRN (10:59)
[2018-01-21] MEDS ORDERED: SODIUM CHLORIDE FLUSH SYRINGE 10 ML IV PRN (10:59)
--- NOTE | 2018-01-21 10:59 | Operative Report ---
Operative Report Operative Report: Date of Service: January 21, 2018 Preoperative diagnosis: Left breast cancer of the upper outer quadrant with axillary marco metastasis Postoperative diagnosis: Same Procedure: Left axillary lymph node dissection Surgeon: Tatum Akbar MD Trekking Guide: Jeny Johnson MD Anesthesia: General Findings: Left ALND performed Complications: None EBL: Minimal Disposition: PACU in good condition Indications for operative procedure: This is a 52 year old lady with Stage III Left breast cancer of the upper outer quadrant. 2 weeks ago she underwent a left partial mastectomy with sentinel lymph node biopsy followed by reduction mammoplasty by plastic surgery. Final pathology with findings of left axillary marco metastasis from previous biopsied axillary lymph node prior to neoadjuvant chemotherapy. Recommendations are to proceed with a left axillary lymph node dissection. Patient wished to proceed with the procedure. Procedure in detail: Patient was then taken to the operating room and was laid supine. Gen. anesthesia was administered. Left breast and axilla was prepped and draped in the normal sterile operative fashion. Timeout was performed. Attention was taken towards the left axilla. A lazy S axillary incision was made incorporating prior axillary marco incision with a 15 blade knife and dissection taken down to the subcutaneous tissues. First began opening of the axillary fascia. Reactive tissue was noted from recent prior surgery. The lattismus dorsi muscle was identified and followed superiorly. Then proceeded with identification of the axillary vein followed by identification of the thoracodorsal bundle and long thoracic nerve. Axillary lymph nodes were then removed from the above boundaries with the aid of the bovie cautery and sweeping -like motion and then sent to pathology. Palpable axillary lymph nodes were noted. Axillary lymph nodes lateral to the thoradorsal bundle noted as well. Both nerves were identified and unharmed. Hemostasis was noted. 19 [place] JAME drain was placed and sutured in. Axillary fascia was approximated and closed using interrupted 3-0 Vicryl and skin brought together and closed using a running 4-0 Monocryl followed by skin affix. She tolerated surgery very well and was awaken from anesthesia without any complication and then transported to PACU in good condition.
[2018-01-21] MEDS ORDERED: MORPHINE IV PRN (11:01)
[2018-01-21] MEDS: DILAUDID IV PRN ×3 (11:10→11:35)
[2018-01-21] MEDS ORDERED: DILAUDID ONE ×2 (11:10→11:37)
[2018-01-21] MEDS ORDERED: LACTATED RINGERS 1,000 ML ONE (11:41)
[2018-01-21] MEDS: PERCOCET 5/325 PO PRN ×2 (14:41→22:40)
[2018-01-21] MEDS: BENADRYL PO PRN (20:54)
[2018-01-21] MEDS ORDERED: COLACE PO SCH (22:00)
[2018-01-22 06:29] VITALS: BP 106/67
[2018-01-22] MEDS: PERCOCET 5/325 PO PRN (07:10)
[2018-01-22] MEDS: BENADRYL PO PRN (07:10)
== END 2018-01-22 12:50 | disposition home or self-care (01) ==
LOC: OR 06:05 → OB 10:59
PROVIDERS: ADMIT Surgery; ATTEND Surgery
DX: C50.412 Malignant neoplasm of upper-outer quadrant of left female breast (principal); C77.3 Secondary and unspecified malignant neoplasm of axilla and upper limb lymph nodes; I10 Essential (primary) hypertension; D57.3 Sickle-cell trait; Z92.21 Personal history of antineoplastic chemotherapy; Z90.12 Acquired absence of left breast and nipple
CPT/HCPCS: 38745; 81025; 88307; 96374; 96375; G0378; J0690; J1170; J2250; J2405; J2704; J3010; J7120; 88333; J0330; J2370

== ENCOUNTER 2018-02-16 13:17 | Outpatient (CLI) | payer BC | END 2018-02-16 13:18 | disposition home or self-care (01) | LOC: LABHHL 13:17 | PROVIDERS: ATTEND Internal Medicine Hematology & Oncology | DX: C50.412 Malignant neoplasm of upper-outer quadrant of left female breast (principal); M25.562 Pain in left knee; D70.2 Other drug-induced agranulocytosis; D64.81 Anemia due to antineoplastic chemotherapy; E66.9 Obesity, unspecified; Z79.899 Other long term (current) drug therapy | CPT/HCPCS: 88368 ==

== ENCOUNTER 2018-03-19 09:36 | Outpatient (CLI) | payer BC ==
[2018-03-19] MEDS ORDERED: FLUSH HEPARIN IV ONE ×2 (10:26→11:03)
--- NOTE | 2018-03-20 09:56 | Nuclear Medicine Report ---
NUCLEAR MEDICINE MUGA GATED CARDIAC History: Cancer of upper outer quadrant of left breast, assess left ventricular function. Comparison: 11/10/17. Findings: 20 mCi of technetium 99m labeled red blood cells were administered. Gated equilibrium views were obtained in OSIRIS projection with computer analysis of the ejection fraction. Heart rate measures 60 beats per minute. No focal left ventricular wall motion abnormality is identified on the planar images. The cardiac ejection fraction measures 72.1-74.7%. On the previous exam, the cardiac ejection fraction measured 78.3-87.4%. Impression: Cardiac ejection fraction as described above.
== END 2018-03-19 09:37 | disposition home or self-care (01) ==
LOC: NM 09:36
PROVIDERS: ATTEND Internal Medicine Hematology & Oncology
DX: C50.412 Malignant neoplasm of upper-outer quadrant of left female breast (principal); D64.81 Anemia due to antineoplastic chemotherapy; D70.2 Other drug-induced agranulocytosis; E66.9 Obesity, unspecified; K21.9 Gastro-esophageal reflux disease without esophagitis; I10 Essential (primary) hypertension; F41.9 Anxiety disorder, unspecified; Z79.899 Other long term (current) drug therapy
CPT/HCPCS: 78472; A9560; J1642

== ENCOUNTER 2018-07-01 08:26 | Outpatient (CLI) | payer BC ==
[2018-07-01] MEDS ORDERED: FLUSH HEPARIN IV ONE ×2 (08:45→08:56)
--- NOTE | 2018-07-01 13:53 | Nuclear Medicine Report ---
NUCLEAR MEDICINE MUGA GATED CARDIAC History: Left breast cancer. Findings: The plane are images demonstrate no evidence for left ventricular wall motion abnormality. Heart rate measures 65 beats per minute. The cardiac ejection fraction measures 67.3%.
== END 2018-07-01 08:27 | disposition home or self-care (01) ==
LOC: NM 08:26
PROVIDERS: ATTEND Internal Medicine Hematology & Oncology
DX: C50.412 Malignant neoplasm of upper-outer quadrant of left female breast (principal); I10 Essential (primary) hypertension; K21.9 Gastro-esophageal reflux disease without esophagitis; F41.9 Anxiety disorder, unspecified; Z72.89 Other problems related to lifestyle; Z98.890 Other specified postprocedural states; Z98.891 History of uterine scar from previous surgery; Z79.899 Other long term (current) drug therapy
CPT/HCPCS: 78472; A9560; J1642

== ENCOUNTER 2018-07-07 14:23 | Outpatient (CLI) | payer BC ==
--- NOTE | 2018-07-07 14:57 | Mammography Report ---
BILATERAL DIGITAL DIAGNOSTIC MAMMOGRAM WITH CAD : 07/07/18 14:23:00 CLINICAL: Breast cancer survivor status post left partial mastectomy with radiation therapy and status post bilateral reduction mammoplasty . COMPARISON:Left mammogram 07/04/17 FINDINGS: The breasts are heterogeneously dense, which may obscure small masses. Moderate left periareolar skin thickening. No mass, architectural distortion or suspicious calcifications. IMPRESSION: No mammographic evidence of malignancy. Benign postsurgical changes and benign post radiation changes. BI-RADS CATEGORY: 2 -- Benign RECOMMENDATION: Routine mammographic screening in one year. COMMENT: Patient follow-up letters are generated via our [employer] application.
== END 2018-07-07 14:24 | disposition home or self-care (01) ==
LOC: SPVWC 14:23
PROVIDERS: ATTEND Surgery
DX: C50.412 Malignant neoplasm of upper-outer quadrant of left female breast (principal); I10 Essential (primary) hypertension; K21.9 Gastro-esophageal reflux disease without esophagitis; Z90.12 Acquired absence of left breast and nipple; Z98.890 Other specified postprocedural states
CPT/HCPCS: 77066

== ENCOUNTER 2019-01-19 15:11 | Outpatient (CLI) | payer BC ==
--- NOTE | 2019-01-20 15:15 | Magnetic Resonance Report ---
BILATERAL BREAST MRI WITHOUT AND WITH CONTRAST: 01/19/19 15:11:00 CLINICAL: Personal history of left breast cancer involving the upper outer quadrant. She underwent a left partial mastectomy with sentinel lymph node dissection on 01/07/18 followed by plastic surgery with bilateral reduction mammoplasty. She also underwent neoadjuvant chemotherapy followed by radiation therapy. She is currently taking Arimidex. COMPARISON:07/21/17 MRI and is mammograms from 01/05/19 and 07/07/18 10. TECHNIQUE: Axial 1.0-mm T1 without, axial high resolution 2.0-mm T2 and axial 1.0-mm dynamic Vibrant high-resolution postcontrast T1 fat saturation sequences on a 1.5 Meera magnet. The examination was performed with an 8 channel dedicated Sentinelle breast coil. Post processing with CAD and subtraction was performed on an [employer] workstation. 19.0 cc of Multihance was injected without incident for the contrast portion of the exam. Consent was obtained prior to the administration of the contrast. FINDINGS: Right: Minimal background parenchymal enhancement. No mass or suspicious enhancement. No suspicious right axillary or right internal mammary lymph nodes. Left: Mild background parenchymal enhancement. New highly suspicious segmental non-Mass enhancement of the upper inner quadrant extends approximately 12 cm in AP dimension by 1.7 cm transverse dimension by 1.9 cm craniocaudal dimension. There is no mammographic correlate for the non-Mass enhancement. No mass or other suspicious enhancement of the left breast. Mild skin thickening but no skin enhancement and no edema of the breast. No suspicious left axillary or left internal mammary lymph nodes. IMPRESSION: 1. New extensive non-mass enhancement of the upper inner quadrant of the left breast is highly suspicious for recurrent tumor. Since there is no mammographic correlate, recommend MRI guided needle biopsy to evaluate for recurrent tumor. 2. Negative right breast. 3. No suspicious lymph nodes. RIGHT BI-RADS 1 - - Negative LEFT BI-RADS 5 - - Highly Suggestive of Malignancy
== END 2019-01-19 15:12 | disposition home or self-care (01) ==
LOC: SPVIMAG 15:11
PROVIDERS: ATTEND Surgery
DX: C50.412 Malignant neoplasm of upper-outer quadrant of left female breast (principal); I10 Essential (primary) hypertension; K21.9 Gastro-esophageal reflux disease without esophagitis
CPT/HCPCS: A9577; C8908; 77049

== ENCOUNTER 2019-01-25 12:41 | Outpatient (CLI) | payer BC ==
--- NOTE | 2019-01-25 15:33 | Mammography Report ---
LEFT DIGITAL DIAGNOSTIC MAMMOGRAM: 01/25/19 12:41:00 CLINICAL: For clip placement immediately status post MRI biopsy. COMPARISON:01/05/19 FINDINGS: A biopsy clip is now identified at 11 o'clock 8-10 cm from the nipple. The clip position is concordant with the suspicious lesion on MRI. IMPRESSION: Concordant clip placement status post MRI biopsy. BI-RADS CATEGORY: 5 - - Highly Suggestive of Malignancy Pathology pending.
--- NOTE | 2019-01-25 16:14 | Magnetic Resonance Report ---
MRI GUIDED VACUUM ASSISTED CORE BIOPSY RIGHT BREAST: 01/25/19 12:41:00 CLINICAL: Suspicious non-Mass enhancement on recent MRI. COMPARISON: 01/19/19 FINDINGS: Consent for the procedure was obtained. A Vibrant dynamic postcontrast series was performed on a 1.5 Meera magnet using an 8 channel Sentinelle dedicated breast coil. 19.0 cc of Multihance was injected intravenously for the contrast portion of the exam and consent was obtained prior to the administration of the contrast. The lesion was localized and targeted using [employer] Sentinelle biopsy software. The skin was anesthetized with 1% lidocaine and a small dermatotomy was made. 2% lidocaine was administered for deeper anesthesia. 9-G biopsy was performed with an [employer] vacuum assisted device. Multiple cores were obtained after satisfactory positioning was confirmed with a scan. A clip was placed after confirmation of adequate sampling. The probe was removed and hemostasis was achieved with pressure to the site. A sterile dressing was applied. The patient tolerated the procedure well and there were no apparent complications. A two view mammogram demonstrated concordant clip placement. The patient left the department in good condition with instructions for would care and follow-up. IMPRESSION: Uncomplicated MRI biopsy with clip placement left breast.
== END 2019-01-25 12:42 | disposition home or self-care (01) ==
LOC: SPVIMAG 12:41
PROVIDERS: ATTEND Surgery
DX: N60.32 Fibrosclerosis of left breast (principal); I10 Essential (primary) hypertension; K21.9 Gastro-esophageal reflux disease without esophagitis; F41.9 Anxiety disorder, unspecified; Z85.3 Personal history of malignant neoplasm of breast; Z79.899 Other long term (current) drug therapy; Z90.12 Acquired absence of left breast and nipple; Z98.891 History of uterine scar from previous surgery; Z72.89 Other problems related to lifestyle; Z98.890 Other specified postprocedural states; Z86.2 Personal history of diseases of the blood and blood-forming organs and certain disorders involving the immune mechanism
CPT/HCPCS: 19085; 77065; 88305; A4648; A9577

== ENCOUNTER 2019-07-13 14:33 | Outpatient (CLI) | payer BC ==
--- NOTE | 2019-07-13 15:16 | Mammography Report ---
DIGITAL SCREENING MAMMOGRAM WITH CAD, 07/13/2019 INDICATION: Routine screening mammography. Breast cancer survivor status post left partial mastectomy with radiation therapy and chemotherapy. Status post left MRI head benign needle biopsy 01/25/2019. H istory of bilateral reduction mammoplasty. TECHNIQUE: Digital bilateral 2D mammography was obtained in the craniocaudal and mediolateral obliq ue projections. This examination was interpreted with the benefit of Computer-Aided Detection analysi s. COMPARISON: 07/07/2018 FINDINGS: Breast Density: The breasts are heterogeneously dense, which may obscure small masses. There is no evidence of dominant mass, suspicious calcifications or architectural distortion in eithe r breast. A left upper inner biopsy clip and a few scattered left benign calcifications. A right Infu se-a-Port obscures the upper portion of the right breast. IMPRESSION: No mammographic evidence of malignancy. Follow up recommendation: Routine yearly BI-RADS Category 2: Benign. A "normal" or negative report should not discourage follow up or biopsy of a clinically significant f inding. A written summary of these findings will be mailed to the patient. The patient will be entered into a mammography reporting system which will generate a reminder letter for the patient's next appointmen t at the appropriate interval. The [employer] recommends yearly mammograms starting at age 40 and continuing as l abraham as a woman is in good health. Breast MRI is recommended for women with an approximate 20-25% or greater lifetime risk of breast cancer, including women with a strong family history of breast or ova coy cancer or who have been treated for Hodgkin's disease. Signer Name: Sanford Stevens MD Signed: 07/13/2019 3:11 PM Workstation Name: [id number]
== END 2019-07-13 14:34 | disposition home or self-care (01) ==
LOC: SPVWC 14:33
PROVIDERS: ATTEND Surgery
DX: Z12.31 Encounter for screening mammogram for malignant neoplasm of breast (principal)
CPT/HCPCS: 77067

== ENCOUNTER 2019-08-25 06:17 | Day surgery (SDC) | payer BC ==
[~2019-08-25 06:17] MED LIST changes: -HEPARIN 10,000 UNITS/10 ML IV ONE; +LACTATED RINGERS 1,000 ML IV SCH; +MIDAZOLAM 2 MG/2 ML INJ IV NR; -NACL 0.9% 1000 ML 1,000 ML IV SCH; -NACL 0.9% IR ONE; -NACL 0.9% IV ONE; -PEPCID PO NR; -VERSED IV NR; +ceFAZolin/Water 2 GM/20 ML 2 GM/20 ML SYRINGE IV NR
--- NOTE | 2019-08-25 07:10 | Anesthesia Day of Surgery ---
Anesthesia Day of Surgery - Day of Surgery Patient Examined: Yes Patient H&P Reviewed: Yes Patient is NPO: Yes
--- NOTE | 2019-08-25 07:13 | Anesthesia Consultation ---
Anesthesia Consult and Med Hx Date of service: 08/25/19 - Airway Anesthetic Teeth Evaluation: Good ROM Head & Neck: Adequate Mental/Hyoid Distance: Adequate Mallampati Class: Class II Intubation Access Assessment: Probably Good - Pre-Operative Health Status ASA Pre-Surgery Classification: ASA2 Proposed Anesthetic Plan: General (MAC; GA if needed), MAC - Pulmonary Hx Sleep Apnea: (HIGH RISK) - Cardiovascular System Hx Hypertension: Yes (2014) - Central Nervous System Hx Psychiatric Problems: Yes - Hematic Hx Anemia: Yes (LAST HBG 11 08/05/19) Hx Sickle Cell Disease: Yes (TRAIT) - Other Systems Hx Alcohol Use: Yes (WEEKENDS) Hx Substance Use: No Hx Cancer: Yes Hx Obesity: Yes
[2019-08-25] MEDS ORDERED: BUPIVACAINE/PF (0.25%) 2.5 MG/ML 30 ML VIAL INFILTRATI ONE ×2 (07:19→07:54)
[2019-08-25] MEDS ORDERED: LIDOCAINE (1%) 10 MG/1 ML VIAL 20 ML MDV ONE (07:19)
[2019-08-25] MEDS ORDERED: MIDAZOLAM 2 MG/2 ML INJ ONE (07:24)
[2019-08-25] MEDS ORDERED: PROPOFOL 200 MG/20 ML VIAL IV ONE (07:24)
[2019-08-25] MEDS ORDERED: HYDROmorphone 1 MG/1 ML INJ ONE (07:24)
[2019-08-25] MEDS ORDERED: LIDOCAINE MPF (2%) 20 MG/1 ML VIAL 5 ML ONE (07:25)
[2019-08-25] MEDS ORDERED: LIDOCAINE (1%) 10 MG/1 ML VIAL 20 ML MDV INFILTRATI ONE (07:54)
--- NOTE | 2019-08-25 08:21 | Operative Report ---
Operative Report Operative Report: Operative Report: Date of Service: August 25, 2019 Properative diagnosis: Right port with central venous access not indicated Postoperative diagnosis: Same Procedure: Rigtt port removal Surgeon: Tatum Akbar MD Anesthesia: Local MAC Findings: Removal of right port in its entirety Complications: None EBL: Minimal Drain: None Disposition: PACU in good condition Indications for operative procedure: This is a 54-year-old lady with a personal history of left breast cancer. Patient has completed neoadjuvant chemotherapy and central venous access no longer indicated. Patient wished to proceed with port removal. Procedure in detail: Patient was taken to the operating procedure room. She was laid supine. Local MAC anesthesia was administered. The port was identified of the right chest. The right chest was prepped and draped in the normal sterile operative fashion. The skin was anesthetized with 1% lidocaine mix with quarter percent Marcaine. The prior port incision was opened with a 15 blade knife and taken down to the subcutaneous tissues. The port was encountered. The catheter was encountered and was appropriately dissected free and removed in its entirety. Then proceed with port removal with dissection of scar tissue around the port. The port was removed in its entirety without any complications. Hemostasis was obtained. The subcutanoeus tissues were brought together and closed with interrupted 3-0 Vicryl followed by closing of the skin with a running 4-0 Monocryl. She tolerated the procedure very well and was transferred to PACU in good condition.
--- NOTE | 2019-08-25 08:24 | Short Stay Summary ---
Short Stay Documentation Date of service: 08/25/19 - History H&P: obtained from office - Allergies and Medications Current Medications: Allergies No Known Allergies Allergy (Verified 08/20/19 15:12) Home Medications Medication Instructions Recorded Confirmed Last Taken Type amLODIPine 5 mg PO DAILY 07/10/17 08/25/19 08/24/19 08:00 History Anastrozole [Arimidex] 1 mg PO DAILY 08/20/19 08/25/19 08/24/19 08:00 History Calcium Carbonate [Calcium 500 mg PO DAILY 08/20/19 08/25/19 08/24/19 08:00 History Carbonate 500MG TAB] Cholecalciferol Vit D3 [Vitamin D3 1,000 unit PO QDAY 08/20/19 08/25/19 08/24/19 08:00 History 1,000 UNIT TAB] Escitalopram Oxalate [Lexapro] 20 mg PO DAILY 08/20/19 08/25/19 08/24/19 08:00 History Levocetirizine Dihydrochloride 5 mg PO DAILY 08/20/19 08/25/19 08/24/19 08:00 History [Xyzal] Active Medications Cefazolin Sodium (Ancef/Sterile Water 2 Gm/20 Ml) 2 gm in 20 mls @ 80 mls/hr IV PREOP NR; Protocol Stop: 08/25/19 23:59 Lactated Ringer's (Lactated Ringers) 1,000 mls @ 100 mls/hr IV DIRECT ISABEL Last Admin: 08/25/19 07:20 Dose: 100 mls/hr Documented by: Midazolam HCl (Versed) 2 mg IV PREOP NR Stop: 08/25/19 22:00 Last Admin: 08/25/19 07:30 Dose: 2 mg Documented by: - Brief post op/procedure progress note Date of procedure: 08/25/19 Pre-op diagnosis: Right central venous access not indicated,personal hx of left breast cancer Post-op diagnosis: same Procedure: Right port removal Anesthesia: MAC Findings: Right port removal in its entirety Surgeon: CHYNA RICHARDSON Estimated blood loss: minimal Pathology: list (port) Specimen disposition: to lab Condition: stable - Disposition Condition at discharge: Good Disposition: DC-01 TO HOME OR SELFCARE Short Stay Discharge Plan Activity: no restrictions, other Diet: regular Wound: keep clean and dry (remove dressing in 48 hours and then ok to shower) Follow up with: DONOVAN DENTON JR, MD [Primary Care Provider] - 7 Days CHYNA RICHARDSON MD [Staff Physician] - 7 Days
[2019-08-25 08:54] VITALS: BP 122/84
== END 2019-08-25 09:28 | disposition home or self-care (01) ==
LOC: OR 06:17
PROVIDERS: ATTEND Surgery
DX: Z45.2 Encounter for adjustment and management of vascular access device (principal); I10 Essential (primary) hypertension; G47.30 Sleep apnea, unspecified; K21.9 Gastro-esophageal reflux disease without esophagitis; F41.9 Anxiety disorder, unspecified; E66.9 Obesity, unspecified; J44.9 Chronic obstructive pulmonary disease, unspecified; Z90.12 Acquired absence of left breast and nipple; Z98.891 History of uterine scar from previous surgery; Z80.0 Family history of malignant neoplasm of digestive organs; Z80.42 Family history of malignant neoplasm of prostate; Z85.3 Personal history of malignant neoplasm of breast; Z79.899 Other long term (current) drug therapy; Z98.890 Other specified postprocedural states; Z72.89 Other problems related to lifestyle; Z68.38 Body mass index [BMI] 38.0-38.9, adult; Z86.2 Personal history of diseases of the blood and blood-forming organs and certain disorders involving the immune mechanism
CPT/HCPCS: 36590; 88300; J0690; J1170; J2250; J2704; J7120; 88302

== ENCOUNTER 2019-09-15 14:41 | Outpatient (CLI) | payer BC ==
--- NOTE | 2019-09-20 16:08 | Magnetic Resonance Report ---
BILATERAL BREAST MR WITHOUT AND WITH GADOLINIUM INDICATION: Breast cancer survivor status post left partial mastectomy and sentinel lymph node biops y and status post bilateral reduction mammoplasty. She also had radiation therapy and is taking Arimi dex. She had a benign left MRI guided biopsy of suspicious mass enhancement of the upper inner breast 01/25/2019. COMPARISONS: 07/13/2019 screening mammogram and 01/19/2019 MRI TECHNIQUE: Axial 1.0 mm T1 without, axial high-resolution 2.0 mm T2 and axial 1.0 mm dynamic vibrant high-resolution postcontrast T1 fat saturation sequences on a 1.5 Meera magnet. The examination was p erformed with an 8-channel dedicated [place] breast coil. Post-processing with CAD and subtraction was performed on an [employer] workstation. 19.0 cc of MultiHance was injected for the contrast portion o f the exam. Consent was obtained prior to the administration of the contrast. She vomited after admin istration of the contrast. FINDINGS: RIGHT BREAST: Moderate background parenchymal enhancement. No mass or suspicious enhancement. No susp icious lymph nodes. LEFT BREAST: Moderate background parenchymal enhancement. No mass or suspicious enhancement. The prev iously identified nonmass enhancement of the upper inner breast is no longer identified. No suspiciou s lymph nodes. Nonenhancing scar in the left axilla. IMPRESSION: Negative study with no suspicious findings. Recommend routine mammographic screening. BI-RADS Category 2: Benign Signer Name: Sanford Stevens MD Signed: 09/20/2019 4:04 PM Workstation Name: [id number]
== END 2019-09-15 14:42 | disposition home or self-care (01) ==
LOC: SPVIMAG 14:41
PROVIDERS: ATTEND Surgery
DX: C50.412 Malignant neoplasm of upper-outer quadrant of left female breast (principal)
CPT/HCPCS: A9577; C8908; 77049

== ENCOUNTER 2020-01-19 12:42 | Outpatient (CLI) | payer BC ==
--- NOTE | 2020-01-19 15:58 | Magnetic Resonance Report ---
BILATERAL BREAST MR WITHOUT AND WITH GADOLINIUM INDICATION: Breast cancer survivor status post left partial mastectomy and sentinel lymph node biops y and status post bilateral reduction mammoplasty. She has also had radiation therapy and is taking A rimidex. She had a benign left MRI guided needle biopsy of a suspicious non mass enhancement of the u pper inner breast 01/25/2019 COMPARISONS: 09/15/2019 TECHNIQUE: Axial 1.0 mm T1 without, axial high-resolution 2.0 mm T2 and axial 1.0 mm dynamic vibrant high-resolution postcontrast T1 fat saturation sequences on a 1.5 Meera magnet. The examination was p erformed with an 8-channel dedicated [place] breast coil. Post-processing with CAD and subtraction was performed on an [employer] workstation. 19.0 cc of MultiHance was injected without incident for the c ontrast portion of the exam. Consent was obtained prior to the administration of the contrast. FINDINGS: RIGHT BREAST: Minimal background parenchymal enhancement. No mass or suspicious enhancement. No suspi cious lymph nodes. LEFT BREAST: Minimal background parenchymal enhancement. No mass or suspicious enhancement. Benign le ft axillary scar. No suspicious lymph nodes. IMPRESSION: Negative study with no evidence of malignancy. Recommend routine mammographic screening. BI-RADS Category 2: Benign A normal MRI does not exclude the presence of some forms of breast malignancy as literature reports s uggest that some forms of ductal carcinoma in situ or lobular carcinoma, particularly, may not be det ected on MRI. The sensitivity and specificity of MRI for cancers under 5 mm may be reduced. MRI does not replace the recommendation for annual conventional mammographic evaluation and should be used as an adjunct to mammography and physical examination as necessary. Signer Name: Sanford Stevens MD Signed: 01/19/2020 3:54 PM Workstation Name: [id number]
== END 2020-01-19 12:43 | disposition home or self-care (01) ==
LOC: SPVIMAG 12:42
PROVIDERS: ATTEND Surgery
DX: Z85.3 Personal history of malignant neoplasm of breast (principal)
CPT/HCPCS: A9577; C8908; 77049

== ENCOUNTER 2020-01-25 15:17 | Outpatient (CLI) | payer BC ==
--- NOTE | 2020-01-25 15:57 | Mammography Report ---
DIGITAL DIAGNOSTIC MAMMOGRAM WITH CAD, 01/25/2020 INDICATION: H/O LEFT BREAST CA TECHNIQUE: Digital left mammographic imaging was performed. This examination was interpreted with the benefit of Computer-aided Detection analysis. COMPARISON: Prior mammograms, 07/13/2019, 01/25/2019, 07/04/2017 FINDINGS: Breast Density: There are scattered areas of fibroglandular density. There is no evidence of dominant mass, suspicious calcifications or architectural distortion in the l eft breast. Changes consistent with reduction mammoplasty are noted. There are small oil cysts within the central region of the breast. A biopsy clip is present in the superior portion of the breast. Ov erall, no interval change from the most recent mammogram. IMPRESSION: Benign finding. No evidence for malignancy. Follow up recommendation: Resumption of annual screening mammography in July 2020 BI-RADS Category 2: Benign. A "normal" or negative report should not discourage follow up or biopsy of a clinically significant f inding. A written summary of these findings will be mailed to the patient. The patient will be entered into a mammography reporting system which will generate a reminder letter for the patient's next appointmen t at the appropriate interval. According to the [employer], yearly mammograms are recommended starting at age 40 and continuing as long as a woman is in good health. Breast MRI is recommended for women with an ari roximately 20-25% or greater lifetime risk of breast cancer, including women with a strong family his tory of breast or ovarian cancer and women who have been treated for Hodgkin's disease. Signer Name: Velia Schafer MD Signed: 01/25/2020 3:53 PM Workstation Name: [id number]
== END 2020-01-25 15:18 | disposition home or self-care (01) ==
LOC: SPVWC 15:17
PROVIDERS: ATTEND Surgery
DX: N60.02 Solitary cyst of left breast (principal); Z85.3 Personal history of malignant neoplasm of breast

== ENCOUNTER 2020-07-18 14:23 | Outpatient (CLI) | payer BC ==
--- NOTE | 2020-07-18 15:23 | Mammography Report ---
DIGITAL SCREENING MAMMOGRAM WITH CAD, 07/18/2020 INDICATION: Routine screening mammography. The patient has a personal history of left breast cancer t reated with lumpectomy. TECHNIQUE: Digital bilateral 2D mammography was obtained in the craniocaudal and mediolateral obliq ue projections. This examination was interpreted with the benefit of Computer-Aided Detection analysi s. COMPARISON: 07/13/2019, 01/05/2019, 01/25/2020 FINDINGS: Breast Density: The breasts are heterogeneously dense, which may obscure small masses. There is no evidence of dominant mass, suspicious calcifications or architectural distortion in eithe r breast. Postlumpectomy changes are again noted in the left breast. IMPRESSION: Follow up recommendation: Routine yearly BI-RADS Category 2: Benign. A "normal" or negative report should not discourage follow up or biopsy of a clinically significant f inding. A written summary of these findings will be mailed to the patient. The patient will be entered into a mammography reporting system which will generate a reminder letter for the patient's next appointmen t at the appropriate interval. The [employer] recommends yearly mammograms starting at age 40 and continuing as l abraham as a woman is in good health. Breast MRI is recommended for women with an approximate 20-25% or greater lifetime risk of breast cancer, including women with a strong family history of breast or ova coy cancer or who have been treated for Hodgkin's disease. Signer Name: Eve Donovan MD Signed: 07/18/2020 3:19 PM Workstation Name: [id number]
== END 2020-07-18 14:24 | disposition home or self-care (01) ==
LOC: SPVWC 14:23
PROVIDERS: ATTEND Surgery
DX: Z12.31 Encounter for screening mammogram for malignant neoplasm of breast (principal); Z85.3 Personal history of malignant neoplasm of breast
CPT/HCPCS: 77067